=== PATIENT | female | born 1950 | race Caucasian/White ===

== ENCOUNTER → 2021-07-06 10:29 | Outpatient (CLI) | payer MEDICARE, SELFPAY ==
--- NOTE | 2021-07-06 | DI.MRI.S_ITS ---
PROCEDURE: MR PELIS WO/W CON INDICATIONS: Lower abdominal pain, unspecified TECHNIQUE: Noncontrast coronal T1 spin echo and STIR, sagittal T1 spin echo with fat saturation and STIR, axial T1 spin echo and T2 fast spin echo with fat saturation. After the administration of contrast, axial/sagittal/coronal T1 spin echo with fat saturation through the pelvis . COMPARISON: None. FINDINGS: Image quality: Excellent. Bones: There are subtle subcortical foci of low T1 signal on both sides of the pubic symphysis.. This corresponds to mild bony edema as well as a mild edema and thickening in the anterior soft tissues. There is a very small symphyseal joint effusion. No joint space widening. There is possible subtle cortical scalloping anteriorly. Trace subcortical enhancement and minor enhancement of anterior soft tissues. Marrow signal is otherwise normal. Sacroiliac and femoroacetabular joints appear normal. Soft tissues: The uterus is surgically absent. The urinary bladder demonstrates normal wall thickness. Urethra and vaginal canal appear normal. Ovarian tissue is not identified. Visible bowel loops demonstrate occasional sigmoid diverticulosis. No suspicious dilated bowel loops. No soft tissue masses are visualized. The scanned muscles demonstrate normal overall bulk and internal signal. Subcutaneous tissues appear normal as well. No abnormal soft tissue enhancement. IMPRESSION: 1. Findings of mild osteitis pubis. Correlate with radiographs. 2. No findings of intrapelvic soft tissue abnormality. Dictated by: Lilly Arellano M.D. on 07/06/2021 at 14:30 Approved by: Lilly Arellano M.D. on 07/06/2021 at 14:42
== END ==
PROVIDERS: Family Provider Naturopath; PCP Family Medicine; Referring Provider Family Medicine; Visit Provider Family Medicine
DX: M86.9 Osteomyelitis, unspecified (principal); R10.2 Pelvic and perineal pain; R10.30 Lower abdominal pain, unspecified
CPT/HCPCS: 72197